=== PATIENT | female | born 1970 | race American Indian/Alaskan Native ===

== ENCOUNTER 2016-10-01 13:57 | Emergency (ER) | payer MEDICAID ==
[2016-10-01 14:16] VITALS: BP 135/93; PULSE 75; RESP 18; TEMP 98.3; O2SAT 99
--- NOTE | 2016-10-01 14:40 | ED PDOC ---
Lower Extremity Pain/Injury Time Seen by Provider: 10/01/16 14:35 Chief Complaint (Nursing): Lower Extremity Problem/Injury Chief Complaint (Provider): Left heel pain History Per: Patient History/Exam Limitations: no limitations Onset/Duration Of Symptoms: Days Current Symptoms Are (Timing): Still Present Severity: Moderate Additional History Per: Patient Additional Complaint(s): The pt is a 46yo female, PMHx of HTN, depression, presents to the ED for evaluation of left heel pain for the past day. Pt reports she had similar symptoms 20years ago and after seeing a provider, was informed that she has "arthritis". She currently denies any excessive use of her foot and denies any trauma or injuries. Pt denies any numbness or tingling and has full ROM of her left foot. Of note, pt reports concern because she has b/l leg cramping during her menstrual period. She currently denies any other medical complaints. - Ankle/Foot Currently Unable To: Bear Weight Past Medical History Reviewed: Historical Data, Nursing Documentation, Vital Signs Vital Signs: Last Vital Signs Temp 98.3 F 10/01/16 14:12 Pulse 75 10/01/16 14:12 Resp 18 10/01/16 14:12 BP 135/93 H 10/01/16 14:12 Pulse Ox 99 10/01/16 14:12 - Medical History PMH: Depression, HTN Denies: Chronic Kidney Disease - Family History Family History: States: Unknown Family Hx - Home Medications Home Medications: Ambulatory Orders Medication Instructions Recorded Naproxen [Naprosyn Tab] 375 mg PO Q8 PRN #21 tab 10/01/16 - Allergies Allergies/Adverse Reactions: Allergies Allergy/AdvReac Type Severity Reaction Status Date / Time No Known Allergies Allergy Verified 10/01/16 14:11 Review of Systems ROS Statement: Except As Marked, All Systems Reviewed And Found Negative Musculoskeletal: Positive for: Foot Pain (left heel pain) Physical Exam - Reviewed Nursing Documentation Reviewed: Yes Vital Signs Reviewed: Yes - Physical Exam Appears: Positive for: Well, Non-toxic, No Acute Distress Head Exam: Positive for: ATRAUMATIC, NORMAL INSPECTION, NORMOCEPHALIC Skin: Positive for: Normal Color, Warm, Dry Eye Exam: Positive for: Normal appearance Cardiovascular/Chest: Positive for: Regular Rate, Rhythm Respiratory: Negative for: Respiratory Distress Pulses-Dorsalis Pedis (R): 2+ Extremity: Positive for: Normal ROM, Tenderness, Swelling. Negative for: Deformity Neurologic/Psych: Positive for: Alert, Oriented - ECG O2 Sat by Pulse Oximetry: 99 (RA) Pulse Ox Interpretation: Normal - Progress ED Course And Treament: DUPLEX BILATERAL: NEG FOR DVT XRY OF FOOT: ? BONY ABNORMALITY NOTED ON DISTAL TIBIA . REVIEWED WITH PODIATRY RESIDENT. FEELS MAY REPRESENT OLD INJURY/BURSITIS. RECOMMENDS CRUTCHES AND AIR SPLINT. WILL F/U WITH CLINIC THIS SUN OR SUNDAY. Medical Decision Making Medical Decision Making: Time: 1445 Impression: Left heel pain Plan: -- XR left foot -- US Doppler lower extremity --Reassess Scribe Attestation: All records were documented by Rhonda Sanz, acting as a Scribe for LUIS DANIEL Harp. Provider Scribe Attestation: All medical record entries made by the Scribe were at my direction and personally dictated by me. I have reviewed the chart and agree that the record accurately reflects my personal performance of the history, physical exam, medical decision making, and the department course for this patient. I have also personally directed, reviewed, and agree with the discharge instructions and disposition. Disposition - Clinical Impression Clinical Impression: Foot pain - Patient ED Disposition Is Patient to be Admitted: No - Disposition Referrals: Podiatry Clinic [Outside] Disposition: Routine/Home Disposition Time: 16:26 Condition: FAIR Prescriptions: Naproxen [Naprosyn Tab] 375 mg PO Q8 PRN #21 tab PRN Reason: Pain, Moderate (4-7) Instructions: Ankle Bursitis (ED) Forms: [facility] ED School/Work Excuse
--- NOTE | 2016-10-01 16:33 | RAD ---
PROCEDURE: Left Foot Radiographs. CT HISTORY: heel pain COMPARISON: None. FINDINGS: BONES: Normal. No fracture. Posterior calcaneal enthesophyte JOINTS: Minor degenerative changes 1st MTP joint. SOFT TISSUES: Normal. OTHER FINDINGS: None. IMPRESSION: No evidence of acute displaced fracture nor dislocation. Tiny posterior calcaneal enthesophyte. 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
--- NOTE | 2016-10-01 16:50 | US ---
PROCEDURE: Bilateral lower extremity venous duplex Doppler. HISTORY: r/o dvt COMPARISON: None available. TECHNIQUE: Bilateral common femoral, superficial femoral, popliteal and posterior tibial veins were evaluated. Flow was assessed with color Doppler, compressibility, assessment of phasic flow and augmentation response. FINDINGS: COMMON FEMORAL VEIN: Right CFV: Unremarkable. Left CFV: Unremarkable. SUPERFICIAL FEMORAL VEIN: Right SFV: Unremarkable. Left SFV: Unremarkable. POPLITEAL VEIN: Right Popliteal: Unremarkable. Left Popliteal: Unremarkable. POSTERIOR TIBIAL VEIN: Right PTV: Unremarkable. Left PTV: Unremarkable. OTHER FINDINGS: None. IMPRESSION: No evidence of deep venous thrombosis.
== END 2016-10-01 16:45 | disposition home or self-care (01) ==
LOC: H.ER 13:57
DX: M79.672 Pain in left foot (principal); I10 Essential (primary) hypertension; Z86.59 Personal history of other mental and behavioral disorders

== ENCOUNTER 2018-02-11 07:41 | Emergency (ER) | payer MEDICAID ==
[2018-02-11 07:49] VITALS: BMI 30.2
[2018-02-11 07:50] VITALS: TEMP 98.7
--- NOTE | 2018-02-11 09:03 | ED PDOC ---
Lower Extremity Pain/Injury Time Seen by Provider: 02/11/18 08:12 Chief Complaint (Nursing): Lower Extremity Problem/Injury Chief Complaint (Provider): Lower Extremity Problem/Injury History Per: Patient History/Exam Limitations: no limitations Onset/Duration Of Symptoms: Days (1) Additional Complaint(s): 48 years old female presents to ER for evaluation of cramping of back of right thigh onset yesterday morning. Patient reports worsening of pain when laying down or walking. Has had similar pain in past, moves back and forth from right to left leg. Patient denies heavy lifting, numbness or weakness. PMD: non provided Past Medical History Reviewed: Historical Data, Nursing Documentation, Vital Signs Vital Signs: Last Vital Signs Temp 98.7 F 02/11/18 07:49 Pulse 82 02/11/18 07:49 Resp 17 02/11/18 07:49 BP 130/90 02/11/18 07:49 Pulse Ox 99 02/11/18 07:49 - Medical History PMH: Depression, HTN Denies: Chronic Kidney Disease - Surgical History Surgical History: No Surg Hx - Family History Family History: States: Unknown Family Hx - Social History Current smoker - smoking cessation education provided: No Alcohol: None Drugs: Denies - Home Medications Home Medications: Ambulatory Orders Medication Instructions Recorded Naproxen [Naprosyn Tab] 375 mg PO Q8 PRN #21 tab 10/01/16 Cyclobenzaprine [Cyclobenzaprine 10 mg PO TID PRN #15 tab 02/11/18 HCl] Naproxen [Naprosyn] 500 mg PO BID PRN #15 tablet 02/11/18 - Allergies Allergies/Adverse Reactions: Allergies Allergy/AdvReac Type Severity Reaction Status Date / Time No Known Allergies Allergy Verified 10/01/16 14:11 Review of Systems ROS Statement: Except As Marked, All Systems Reviewed And Found Negative Musculoskeletal: Positive for: Leg Pain (Right thigh) Physical Exam - Reviewed Nursing Documentation Reviewed: Yes Vital Signs Reviewed: Yes - Physical Exam Appears: Positive for: Non-toxic, No Acute Distress Head Exam: Positive for: ATRAUMATIC, NORMOCEPHALIC Skin: Positive for: Normal Color, Warm, Dry Pulses-Femoral (R): 2+ Extremity: Positive for: Normal ROM, Capillary Refill (<2 sec). Negative for: Tenderness, Pedal Edema, Calf Tenderness, Deformity, Swelling, Other (No erythema) Neurologic/Psych: Positive for: Alert, Oriented. Negative for: Motor/Sensory Deficits - ECG O2 Sat by Pulse Oximetry: 99 (RA) Pulse Ox Interpretation: Normal Medical Decision Making Medical Decision Making: Time: 40 Initial Plan: --Flexeril 10 mg PO --Toradol 30 mg IM --Right duplex lower extremity vein US 1058 Extremity US FINDINGS: COMMON FEMORAL VEIN: Unremarkable. SUPERFICIAL FEMORAL VEIN: Unremarkable. POPLITEAL VEIN: Unremarkable. POSTERIOR TIBIAL VEIN: Unremarkable. OTHER FINDINGS: None. IMPRESSION: No evidence of deep venous thrombosis in the right lower extremity. Scribe Attestation: Documented by Kassi Jones, acting as a scribe for Pallavi Celaya MD. Provider Scribe Attestation: All medical record entries made by the Scribe were at my direction and personally dictated by me. I have reviewed the chart and agree that the record accurately reflects my personal performance of the history, physical exam, medical decision making, and the department course for this patient. I have also personally directed, reviewed, and agree with the discharge instructions and disposition. Disposition - Clinical Impression Clinical Impression: Cramps of lower extremity - Disposition Referrals: [facility] [Outside] Disposition: Routine/Home Disposition Time: 12:32 Condition: STABLE Prescriptions: Cyclobenzaprine [Cyclobenzaprine HCl] 10 mg PO TID PRN #15 tab PRN Reason: Pain Naproxen [Naprosyn] 500 mg PO BID PRN #15 tablet PRN Reason: Pain, Moderate (4-7) Instructions: Muscle Spasms (DC) Forms: [employer] ([place])
--- NOTE | 2018-02-11 11:01 | US ---
Date of service: 02/11/2018 PROCEDURE: Right lower extremity venous duplex Doppler. HISTORY: Posterior thigh pain COMPARISON: None available. TECHNIQUE: Common femoral, superficial femoral, popliteal and posterior tibial veins were evaluated. Flow was assessed with color Doppler, compressibility, assessment of phasic flow and augmentation response. FINDINGS: COMMON FEMORAL VEIN: Unremarkable. SUPERFICIAL FEMORAL VEIN: Unremarkable. POPLITEAL VEIN: Unremarkable. POSTERIOR TIBIAL VEIN: Unremarkable. OTHER FINDINGS: None. IMPRESSION: No evidence of deep venous thrombosis in the right lower extremity.
[2018-02-11 12:00] VITALS: BP 134/82; PULSE 88; RESP 18
[2018-02-11 12:32] VITALS: O2SAT 99
== END 2018-02-11 12:35 | disposition home or self-care (01) ==
LOC: H.ER 07:41
DX: R25.2 Cramp and spasm (principal); F32.9 Major depressive disorder, single episode, unspecified; I10 Essential (primary) hypertension
CPT/HCPCS: 93971; 96372; 99283; J1885